=== PATIENT | female | born 1995 | race Caucasian/White ===

== ENCOUNTER → 2021-03-30 | Outpatient (CLI) | payer OTHER | LOC: COL.RAD 11:53 | DX: R56.9 Unspecified convulsions (principal); R51.9 Headache, unspecified ==

== ENCOUNTER 2021-05-01 14:04 | Emergency (ER) | payer OTHER ==
[~2021-05-01] VITALS: Ht 160 cm; Wt 50.0 kg
[2021-05-01 14:50] VITALS: TEMP 98
[2021-05-01] MEDS ORDERED: KEPPRA 500MG500 MG PO (15:01)
[2021-05-01] MEDS ORDERED: SYNTHROID 0.0.025 MG PO (15:01)
[2021-05-01 17:10] VITALS: BP 94/71; PULSE 73
== END 2021-05-01 17:22 | disposition home or self-care (01) ==
LOC: COL.ER 14:04
DX: S03.00XA Dislocation of jaw, unspecified side, initial encounter (principal); Z86.69 Personal history of other diseases of the nervous system and sense organs; X58.XXXA Exposure to other specified factors, initial encounter
CPT/HCPCS: J2704

== ENCOUNTER 2021-05-09 16:53 | Emergency (ER) | payer OTHER ==
[~2021-05-09] VITALS: Ht 160 cm; Wt 52.3 kg
[~2021-05-09 16:53] MED LIST: KEPPRA 500MG500 MG PO; SYNTHROID 0.0.025 MG PO
[2021-05-09 17:25] VITALS: TEMP 98.3
[2021-05-09 23:08] VITALS: BP 119/72; PULSE 87
== END 2021-05-09 23:14 | disposition home or self-care (01) ==
LOC: COL.ER 16:53
DX: S03.01XA Dislocation of jaw, right side, initial encounter (principal); G40.909 Epilepsy, unspecified, not intractable, without status epilepticus; Z79.899 Other long term (current) drug therapy; X58.XXXA Exposure to other specified factors, initial encounter
CPT/HCPCS: J2060; J2704; J3010; J7040

== ENCOUNTER → 2021-05-18 | Outpatient (CLI) | payer OTHER | LOC: COL.CARD 12:23 | DX: R56.9 Unspecified convulsions (principal) ==

== ENCOUNTER 2021-05-30 04:39 | Emergency (ER) | payer OTHER ==
[~2021-05-30] VITALS: Ht 160 cm; Wt 47.3 kg
[2021-05-30 04:43] VITALS: TEMP 98.2
[2021-05-30 06:54] VITALS: BP 110/76; PULSE 77
== END 2021-05-30 06:58 | disposition home or self-care (01) ==
LOC: COL.ER 04:39
DX: S03.00XA Dislocation of jaw, unspecified side, initial encounter (principal); Z86.69 Personal history of other diseases of the nervous system and sense organs; X58.XXXA Exposure to other specified factors, initial encounter
CPT/HCPCS: J2250; J3010

== ENCOUNTER 2021-07-22 05:40 | Emergency (ER) | payer OTHER ==
[~2021-07-22] VITALS: Ht 160 cm; Wt 47.3 kg
[2021-07-22 05:58] VITALS: TEMP 97.8
[2021-07-22 09:19] VITALS: BP 114/79; PULSE 70
== END 2021-07-22 09:28 | disposition home or self-care (01) ==
LOC: COL.ER 05:40
DX: S03.01XA Dislocation of jaw, right side, initial encounter (principal); X58.XXXA Exposure to other specified factors, initial encounter
CPT/HCPCS: J2704

== ENCOUNTER 2021-07-27 14:47 | Emergency (ER) | payer OTHER ==
[~2021-07-27] VITALS: Ht 160 cm; Wt 46.4 kg
[2021-07-27 18:30] VITALS: TEMP 98.4
[2021-07-27 19:30] VITALS: BP 154/78; PULSE 76
== END 2021-07-27 20:00 | disposition short-term general hospital (02) ==
LOC: COL.ER 14:47
DX: S03.03XA Dislocation of jaw, bilateral, initial encounter (principal); Z88.4 Allergy status to anesthetic agent; X58.XXXA Exposure to other specified factors, initial encounter
CPT/HCPCS: J1885; J2250; J2704; J3010; J7030; J7120

== ENCOUNTER → 2021-09-22 | Outpatient (CLI) | payer OTHER | LOC: COL.RAD 13:15 | DX: R56.9 Unspecified convulsions (principal) | CPT/HCPCS: A9575 ==

== ENCOUNTER 2021-12-27 15:25 | Emergency (ER) | payer OTHER ==
[~2021-12-27] VITALS: Ht 160 cm; Wt 45.5 kg
[2021-12-27 15:42] VITALS: TEMP 98.6
[2021-12-27 18:27] VITALS: BP 107/70; PULSE 80
== END 2021-12-27 18:29 | disposition home or self-care (01) ==
LOC: COL.ER 15:25
DX: S03.01XA Dislocation of jaw, right side, initial encounter (principal); Z28.310 Unvaccinated for COVID-19; X58.XXXA Exposure to other specified factors, initial encounter
CPT/HCPCS: J2250; J2704; J7030

== ENCOUNTER 2022-01-02 22:11 | Emergency (ER) | payer OTHER ==
[~2022-01-02] VITALS: Ht 160 cm; Wt 45.5 kg
[2022-01-02 22:19] VITALS: TEMP 98.4
[2022-01-03 01:25] VITALS: BP 109/71; PULSE 78
== END 2022-01-03 01:25 | disposition home or self-care (01) ==
LOC: COL.ER 22:11
DX: S03.01XA Dislocation of jaw, right side, initial encounter (principal); Z28.310 Unvaccinated for COVID-19; Z88.4 Allergy status to anesthetic agent; X58.XXXA Exposure to other specified factors, initial encounter
CPT/HCPCS: J2704; J7030

== ENCOUNTER 2022-01-04 14:18 | Emergency (ER) | payer OTHER ==
[~2022-01-04] VITALS: Ht 160 cm; Wt 45.5 kg
[2022-01-04 15:08] VITALS: TEMP 97.8
[2022-01-04 16:33] VITALS: BP 117/84; PULSE 67
== END 2022-01-04 16:33 | disposition home or self-care (01) ==
LOC: COL.ER 14:18
DX: S03.01XA Dislocation of jaw, right side, initial encounter (principal); Z88.4 Allergy status to anesthetic agent; Z28.311 Partially vaccinated for COVID-19; X58.XXXA Exposure to other specified factors, initial encounter
CPT/HCPCS: J2704; J7030

== ENCOUNTER 2022-01-07 22:27 | Emergency (ER) | payer OTHER ==
[~2022-01-07] VITALS: Ht 160 cm; Wt 45.5 kg
[2022-01-08] VITALS: BP 117/77; PULSE 70; TEMP 97.8
== END 2022-01-08 00:03 | disposition home or self-care (01) ==
LOC: COL.ER 22:27
DX: S03.01XA Dislocation of jaw, right side, initial encounter (principal); Z28.310 Unvaccinated for COVID-19; Z88.4 Allergy status to anesthetic agent; X58.XXXA Exposure to other specified factors, initial encounter
CPT/HCPCS: J2704

== ENCOUNTER 2022-01-09 20:48 | Emergency (ER) | payer OTHER ==
[~2022-01-09] VITALS: Ht 160 cm; Wt 45.5 kg
[2022-01-09 21:00] VITALS: TEMP 98.4
[2022-01-10 00:16] VITALS: BP 107/56; PULSE 81
== END 2022-01-10 00:21 | disposition home or self-care (01) ==
LOC: COL.ER 20:48
DX: S03.01XA Dislocation of jaw, right side, initial encounter (principal); Z28.310 Unvaccinated for COVID-19; X58.XXXA Exposure to other specified factors, initial encounter
CPT/HCPCS: J2250; J3010; J7030